=== PATIENT | female | born 1960 | race Two or more races ===

== ENCOUNTER 2024-11-10 17:19 | Emergency (ER) | payer OTHER ==
[~2024-11-10] VITALS: Ht 167.6 cm; Wt 73.0 kg
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
[2024-11-10] MEDS: HYDROcodone-ACET 5/325MG TAB PO ONE (18:28)
[2024-11-10] MEDS: KETOROLAC TROMETH 60MG/2ML VIAL IM ONE (18:29)
[2024-11-10 18:34] VITALS: BP 118/67; TEMP 97.4
[2024-11-10] MEDS ORDERED: IBUP1TAB5 PO (18:53)
[2024-11-10] MEDS ORDERED: HYDR-4902 PO (18:53)
[2024-11-10 20:42] VITALS: PULSE 86; RESP 16; O2SAT 98
== END 2024-11-10 20:42 | disposition home or self-care (01) ==
LOC: EDBD 17:19 → ER 17:19
DX: S16.1XXA Strain of muscle, fascia and tendon at neck level, initial encounter (principal); S40.011A Contusion of right shoulder, initial encounter; E11.9 Type 2 diabetes mellitus without complications; I10 Essential (primary) hypertension; V89.2XXA Person injured in unspecified motor-vehicle accident, traffic, initial encounter; Y93.89 Activity, other specified; Y92.410 Unspecified street and highway as the place of occurrence of the external cause; Y99.8 Other external cause status
CPT/HCPCS: 72040; 73030; 96372; 99284; J1885